=== PATIENT | male | born 1985 | race Caucasian/White ===

== ENCOUNTER → 2017-03-14 | Outpatient (CLI) | payer OTHER | LOC: RAD 16:42 | DX: M25.512 Pain in left shoulder (principal); V49.40XA Driver injured in collision with unspecified motor vehicles in traffic accident, initial encounter ==

== ENCOUNTER 2018-06-21 13:11 | Emergency (ER) | payer OTHER ==
[~2018-06-21] VITALS: Ht 185.4 cm; Wt 77.9 kg
[2018-06-21 13:46] LABS: HEMATOCRIT 48.3 % (42.0-52.0); HEMOGLOBIN 16.4 g/dL (13.5-18.0); MEAN CELL VOLUME 91 fl (78-100); MEAN CORPUSCULAR HEMOGLOBIN 31 pg (27-31); MEAN CORPUSCULAR HGB CONC 34 g/dL (33-37); MEAN PLATELET VOLUME 9.5 fl (7.4-10.4); PLATELET COUNT 238 K/mm3 (130-400); RED BLOOD COUNT 5.31 M/mm3 (4.20-5.60); RED CELL DISTRIBUTION WIDTH 13.5 % (11.5-14.5); WHITE BLOOD COUNT 15.4 K/mm3 (4.8-10.8)
[2018-06-21 13:55] LABS: ALBUMIN 4.7 g/dL (3.5-5.0); BAND 4 % (0-10); CALCIUM 9.7 mg/dL (8.4-10.2); LYMPHOCYTE 6 % (20-51); MONOCYTE 4 % (3-10); NEUTROPHILS 86 % (42-75); POTASSIUM 4.1 mmol/L (3.6-5.0); TOTAL PROTEIN 7.6 g/dL (6.3-8.2)
[2018-06-21 14:45] VITALS: BP 112/84
== END 2018-06-21 15:14 | disposition short-term general hospital (02) ==
LOC: ED 13:11
PROVIDERS: Physician Assistant
DX: K35.32 Acute appendicitis with perforation, localized peritonitis, and gangrene, without abscess (principal); F17.210 Nicotine dependence, cigarettes, uncomplicated
CPT/HCPCS: J2543; J3010; J7030; Q9967

== ENCOUNTER 2019-05-20 19:46 | Emergency (ER) | payer SELFPAY ==
[~2019-05-20] VITALS: Ht 185.4 cm; Wt 77.3 kg
[2019-05-20 20:10] LABS: BASO # 0.1 (0.02-0.10); EOS # 0.4 (0.04-0.40); EOS % 2.5 % (0.0-4.0); HEMATOCRIT 46.6 % (42.0-52.0); LYMPH# 7.5 (1.50-4.00); MEAN CELL VOLUME 91 fl (78-100); MEAN CORPUSCULAR HEMOGLOBIN 31 pg (27-31); MEAN CORPUSCULAR HGB CONC 34 g/dL (33-37); MEAN PLATELET VOLUME 9.2 fl (7.4-10.4); MONO # 1.5 (0.20-0.80); NEU # 6.8 (1.40-6.50); PLATELET COUNT 345 K/mm3 (130-400); RED BLOOD COUNT 5.11 M/mm3 (4.20-5.60); RED CELL DISTRIBUTION WIDTH 12.7 % (11.5-14.5); WHITE BLOOD COUNT 16.3 K/mm3 (4.8-10.8)
[2019-05-20 20:21] LABS: ALBUMIN 4.2 g/dL (3.5-5.0); POTASSIUM 3.3 mmol/L (3.5-5.1)
[2019-05-20 20:22] LABS: CALCIUM 9.4 mg/dL (8.3-10.5)
[2019-05-20 20:25] LABS: TOTAL BILIRUBIN 0.5 mg/dL (0.2-1.2)
[2019-05-20 22:06] VITALS: BP 169/88
== END 2019-05-20 22:25 | disposition short-term general hospital (02) ==
LOC: ED 19:46
PROVIDERS: Internal Medicine
DX: N44.00 Torsion of testis, unspecified (principal); K40.90 Unilateral inguinal hernia, without obstruction or gangrene, not specified as recurrent; F17.210 Nicotine dependence, cigarettes, uncomplicated
CPT/HCPCS: J1170; J2405; J2550; J3010; J7030